=== PATIENT | female | born 1985 | race Two or more races ===

== ENCOUNTER 2016-08-24 00:25 | Outpatient (CLI) | payer MEDICAID ==
[~2016-08-24] VITALS: Ht 162.6 cm; Wt 80.0 kg
[2016-08-24 00:34] LABS: DAU SCREEN DISCLAIMER
[2016-08-24] MEDS ORDERED: MEPERIDINE/PF 50 MG/ML IM ONE (02:00)
[2016-08-24] MEDS ORDERED: PROMETHAZINE 25 MG/ML, 1ML IM ONE (02:00)
[2016-08-24] MEDS ORDERED: MEPERIDINE/PF 100 MG/ML ONE (02:03)
[2016-08-24] MEDS ORDERED: PROMETHAZINE 25 MG/ML, 1ML ONE (02:03)
[2016-08-24 02:43] LABS: HIV 1&2 ANTIBODY SCREEN Nonreactive (Nonreactive); HIV-1 p24 ANTIGEN Nonreactive (Nonreactive)
== END 2016-08-24 02:14 | disposition home or self-care (01) ==
LOC: LDOP 00:25
PROVIDERS: ATTEND Obstetrics & Gynecology
DX: O26.893 Other specified pregnancy related conditions, third trimester (principal); O48.0 Post-term pregnancy; R10.9 Unspecified abdominal pain; Z3A.40 40 weeks gestation of pregnancy
CPT/HCPCS: 36415; 59025; 80307; 85025; 86592; 86703; 86762; 86850; 86900; 87081; 87147; 87340; 87899; 96372; 99201; J2175; J2550; G0435; G0463

== ENCOUNTER 2016-08-24 08:51 | Inpatient (IN) | payer MEDICAID ==
[~2016-08-24] VITALS: Ht 162.6 cm; Wt 79.5 kg
[2016-08-24 09:06] VITALS: BP 108/52
[2016-08-24] MEDS ORDERED: NEWBORN KIT ONE (09:26)
[2016-08-24] MEDS ORDERED: OXYTOCIN 30U/ 0.9% NaCL 500ML 500 ML IV ONE (09:27)
[2016-08-24] MEDS ORDERED: ONDANSETRON 2MG/ML, 2ML IVPush PRN (09:30)
[2016-08-24] MEDS ORDERED: METOCLOPRAMIDE 5 MG/ML, 2ML IVPush PRN (09:30)
[2016-08-24] MEDS ORDERED: SODIUM CITRATE/CITRIC ACID 30 ML UDC PO PRN (09:30)
[2016-08-24] MEDS ORDERED: FENTANYL PF 100 MCG/2ML IVPush PRN (09:30)
[2016-08-24] MEDS ORDERED: FENTANYL PF 100 MCG/2ML IV PRN (09:30)
[2016-08-24] MEDS: LACTATED RINGERS 1,000 ML IV SCH ×4 (09:41→20:45)
[2016-08-24] MEDS ORDERED: MISOPROSTOL 200 MCG TABLET ONE (09:57)
[2016-08-24] MEDS ORDERED: LIDOCAINE 1%, 20ML ONE ×2 (09:57→10:37)
[2016-08-24] MEDS ORDERED: OXYTOCIN 30U/ 0.9% NaCL 500ML 500 ML ONE ×2 (09:57→22:03)
[2016-08-24] MEDS ORDERED: PENICILLIN GK 5,000,000 UNITS in DEXTROSE 5% 100 ML IVPB ONE (10:30)
[2016-08-24] MEDS ORDERED: FENTANYL/BUPIV./NS/PF 250 ML EPIDCONT ONE (10:33)
[2016-08-24] MEDS ORDERED: LIDOCAINE/PF 1.5%-EPI 1:200K, 30ML ONE (10:37)
[2016-08-24] MEDS ORDERED: BUPIVACAINE 0.25% ONE (10:37)
[2016-08-24] MEDS ORDERED: ONDANSETRON 2MG/ML, 2ML ONE (11:11)
[2016-08-24] MEDS: FENTANYL/BUPIV./NS/PF 250 ML EPIDCONT SCH (12:45)
[2016-08-24] MEDS ORDERED: LACTATED RINGERS 1,000 ML IVBOLUS PRN (13:00)
[2016-08-24] MEDS: PENICILLIN GK 2,500,000 UNITS in DEXTROSE 5% 100 ML IVPB SCH ×3 (14:48→22:30)
[2016-08-24] MEDS ORDERED: OXYTOCIN 30U/ 0.9% NaCL 500ML 500 ML IV PRN (14:55)
[2016-08-24] MEDS: D5%-LACTATED RINGERS 1,000 ML IV SCH ×2 (15:08→17:27)
[2016-08-24] MEDS ORDERED: TERBUTALINE 1 MG/ML, 1ML ONE (15:33)
[2016-08-24] MEDS: OXYTOCIN 30U/ 0.9% NaCL 500ML 500 ML IV SCH (21:15)
[2016-08-24] MEDS ORDERED: ONDANSETRON 2MG/ML, 2ML IV PRN (21:30)
[2016-08-24] MEDS ORDERED: METHYLERGONOVINE 0.2 MG/ML IM PRN (21:30)
[2016-08-24] MEDS ORDERED: HYDROcodone/APAP 5/325 TABLET PO PRN (21:30)
[2016-08-24] MEDS ORDERED: MISOPROSTOL 200 MCG TABLET PO PRN (21:30)
[2016-08-25 00:30] VITALS: BP 111/59
[2016-08-25] MEDS: D5%-LACTATED RINGERS 1,000 ML IV SCH ×2 (01:27→09:27)
[2016-08-25] MEDS: PENICILLIN GK 2,500,000 UNITS in DEXTROSE 5% 100 ML IVPB SCH ×3 (02:30→10:30)
[2016-08-25 04:40] VITALS: BP 100/50
[2016-08-25] MEDS: IBUPROFEN 600 MG TABLET PO PRN ×2 (04:41→15:30)
[2016-08-25] MEDS: LACTATED RINGERS 1,000 ML IV SCH (04:45)
[2016-08-25 07:08] VITALS: BP 105/62
[2016-08-25] MEDS: OXYTOCIN 30U/ 0.9% NaCL 500ML 500 ML IV SCH ×2 (07:15→17:15)
[2016-08-25] MEDS: FENTANYL/BUPIV./NS/PF 250 ML EPIDCONT SCH (09:35)
[2016-08-25] MEDS: DOCUSATE 100 MG CAPSULE PO PRN ×2 (10:31→20:18)
[2016-08-25] MEDS: PRENATAL VIT/IRON/FA 1 EACH TABLET PO SCH (10:31)
[2016-08-25 12:30] VITALS: BP 115/65
[2016-08-25 16:45] VITALS: BP 98/57
[2016-08-25] MEDS ORDERED: DIPH,PERTUSS(ACELL),TET VAC/PF NC IM-VACC ONE (20:00)
[2016-08-25] MEDS: HYDROcodone/APAP 5/325 TABLET PO PRN (20:18)
[2016-08-26] MEDS: HYDROcodone/APAP 5/325 TABLET PO PRN ×2 (00:17→04:12)
[2016-08-26] MEDS: IBUPROFEN 600 MG TABLET PO PRN (00:17)
[2016-08-26] MEDS ORDERED: PREN-3 PO (01:53)
[2016-08-26] MEDS ORDERED: IBUP-1222 PO (01:53)
[2016-08-26] MEDS: OXYTOCIN 30U/ 0.9% NaCL 500ML 500 ML IV SCH (03:15)
[2016-08-26 07:55] VITALS: BP 113/70
[2016-08-26] MEDS: PRENATAL VIT/IRON/FA 1 EACH TABLET PO SCH (09:14)
[2016-08-26] MEDS: DOCUSATE 100 MG CAPSULE PO PRN (09:14)
== END 2016-08-26 14:57 | disposition home or self-care (01) | DRG 775 ==
LOC: LDOP 08:51 → LDIP 09:27 → 2NW 23:40
PROVIDERS: ADMIT Specialist; ATTEND Specialist
PROC: 10E0XZZ Delivery of Products of Conception, External Approach (ICD-10-PCS; principal; 2016-08-24)
PROC: 10907ZC Drainage of Amniotic Fluid, Therapeutic from Products of Conception, Via Natural or Artificial Opening (ICD-10-PCS; 2016-08-24)
PROC: 00HU33Z Insertion of Infusion Device into Spinal Canal, Percutaneous Approach (ICD-10-PCS; 2016-08-24)
PROC: 3E0R3CZ (ICD-10-PCS; 2016-08-24)
DX: O99.324 Drug use complicating childbirth (principal); F12.90 Cannabis use, unspecified, uncomplicated; O76 Abnormality in fetal heart rate and rhythm complicating labor and delivery; K08.409 Partial loss of teeth, unspecified cause, unspecified class; O69.3XX0 Labor and delivery complicated by short cord, not applicable or unspecified; Z3A.40 40 weeks gestation of pregnancy; Z37.0 Single live birth; Z87.59 Personal history of other complications of pregnancy, childbirth and the puerperium
CPT/HCPCS: 36415; 85025; 86850; 86900; 90715; J2405; J2540; J3490; J2590; J3010; J7120; J7121

== ENCOUNTER 2018-05-27 14:48 | Emergency (ER) | payer MEDICAID ==
[~2018-05-27] VITALS: Ht 162.6 cm; Wt 88.0 kg
[~2018-05-27 14:48] MED LIST: IBUP-1222 PO; PREN-3 PO
[2018-05-27 14:54] VITALS: BP 137/85
[2018-05-27] MEDS ORDERED: PHENAZOPYRIDINE 200 MG TABLET PO ONE (15:30)
[2018-05-27 15:50] LABS: HCG UR SG 1.016 (1.003-1.030); MICROSCOPIC AUTO
--- NOTE | 2018-05-27 15:50 | NUR ---
THIS IS A 32 YO FEMALE WHO PRESENTS TO THE ER C/O INCREASED URGENCY AND FREQUENCY WITHOUT MUCH OUTPUT X THE LAST FEW DAYS. PT AO X 4. SKIN PWD. RESP EVEN AND EQAUL. NAD NOTED. URINE SAMPLE OBTAINED AND SENT TO LAB. CALL LIGHT WITHIN REACH. WILL CONT TO MONITOR PT.
[2018-05-27 15:52] LABS: CULTURE INDICATED? YES
[2018-05-27] MEDS ORDERED: PHENAZOPYRIDINE 200 MG TABLET ONE (16:13)
--- NOTE | 2018-05-27 16:24 | NUR ---
TASK RN: Patient/Caregiver given discharge instructions and they have confirmed that they understand the instructions. Patient ambulatory with steady gait.
== END 2018-05-27 16:28 | disposition home or self-care (01) ==
LOC: ED 16:20
DX: R30.0 Dysuria (principal)
CPT/HCPCS: 81001; 81025; 87077; 87086; 99283

== ENCOUNTER 2019-02-19 14:40 | Emergency (ER) | payer MEDICAID ==
[~2019-02-19] VITALS: Ht 162.6 cm; Wt 87.8 kg
[2019-02-19 15:10] VITALS: BP 130/63
== END 2019-02-19 16:44 | disposition home or self-care (01) ==
LOC: ED 15:59
DX: J15.9 Unspecified bacterial pneumonia (principal)
CPT/HCPCS: 71046; 99283